=== PATIENT | female | born 1970 | race African-American/Black ===

== ENCOUNTER 2016-10-18 21:31 | Emergency (ER) | payer MEDICAID ==
[~2016-10-18] VITALS: Ht 165.1 cm; Wt 78.0 kg
[2016-10-18 22:21] VITALS: BP 204/127
== END 2016-10-19 05:35 | disposition left against medical advice (07) ==
LOC: ER 10-19 05:11
DX: Z53.21 Procedure and treatment not carried out due to patient leaving prior to being seen by health care provider (principal)
CPT/HCPCS: 82962; 93005

== ENCOUNTER 2020-12-30 16:19 | Emergency (ER) | payer MEDICAID ==
[~2020-12-30] VITALS: Ht 167.6 cm; Wt 55.0 kg
[~2020-12-30 16:19] MED LIST: CARV6.2548 MT; FURO-151 MT; LEVO500T2 MT; LOSA50TA41 MT; METF-416 MT
[2020-12-30 19:13] LABS: BASOPHILS % 1.5 % (0.0-2.0); EOSINOPHILS % 2.2 % (0.0-5.0); HEMATOCRIT. 25.4 % (36.0-48.0); HEMOGLOBIN. 8.5 g/dL (12.0-16.0); LYMPHOCYTES % 14.4 % (20.0-50.0); MEAN CORPUSCULAR HEMOGLOBIN 30.8 pg (28.0-32.0); MEAN CORPUSCULAR VOLUME 91.8 fL (81.0-99.0); MEAN PLATELET VOLUME 7.7 fl (7.4-10.4); MONOCYTES % 11.8 % (2.0-8.0); NEUTROPHILS % 70.1 % (40.0-76.0); PLATELET 699 x1000/uL (130-400); RED BLOOD CELL COUNT 2.77 mill/uL (4.2-5.4); RED CELL DISTRIBUTION WIDTH 19.1 % (11.6-14.6)
[2020-12-30 19:19] LABS: CHLORIDE 112 mEq/L (98-107)
[2020-12-30] MEDS ORDERED: FUROSEMIDE 20MG/2ML VIAL IVP ONE (22:30)
[2020-12-30] MEDS ORDERED: MORPHINE SULFATE 4 MG/ML CPJ (NOT FOR IM USE) IV ONE (23:45)
[2020-12-31] MEDS ORDERED: MORPHINE SULFATE 4 MG/ML CPJ (NOT FOR IM USE) IV ONE (00:45)
[2020-12-31 01:20] VITALS: BP 165/95
== END 2020-12-31 01:21 | disposition short-term general hospital (02) ==
LOC: ER 16:19 → CANBEDREQ 12-31 09:39
DX: M79.10 Myalgia, unspecified site (principal); R53.81 Other malaise; E11.9 Type 2 diabetes mellitus without complications; I11.0 Hypertensive heart disease with heart failure; I50.9 Heart failure, unspecified; F12.10 Cannabis abuse, uncomplicated; Z20.822 Contact with and (suspected) exposure to COVID-19; Z90.49 Acquired absence of other specified parts of digestive tract; Z79.84 Long term (current) use of oral hypoglycemic drugs
CPT/HCPCS: 36415; 71045; 80053; 83880; 84484; 85025; 87426; 93005; 96374; 96375; 99285; J1940; J2270